=== PATIENT | male | born 1950 ===

== ENCOUNTER 2021-05-18 13:17 | Emergency (ER) | payer OTHER ==
[~2021-05-18] VITALS: Ht 180.3 cm; Wt 86.2 kg
[2021-05-18] MEDS ORDERED: LIPITOR40 M1 (13:46)
[2021-05-18] MEDS ORDERED: PROTONIX20 MG PO (13:47)
[2021-05-18] MEDS ORDERED: SYNTHROID125 MCG PO (13:47)
== END 2021-05-18 18:08 | disposition home or self-care (01) ==
LOC: EMR PED 13:17 → ER 13:17
DX: R07.89 Other chest pain (principal)